=== PATIENT | female | born 1985 | race American Indian/Alaskan Native ===

== ENCOUNTER 2017-02-24 11:41 | Emergency (ER) | payer SELFPAY ==
[2017-02-24 11:55] VITALS: BP 112/71; PULSE 76; RESP 20; TEMP 97.8; O2SAT 100
--- NOTE | 2017-02-24 13:20 | C.PDOC ---
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 Patient is now complaining of pain to the left hand and the lower back. States she was seen in [facility] [place] and "they did nothing" for her. Denies swelling, head injury, LOC, neck paain, chest pain, SOB, abdominal pain, nausea/vomiting. Time Seen by Provider: 02/24/17 11:51 Chief Complaint (Nursing): Back Pain History Per: Patient History/Exam Limitations: no limitations Onset/Duration Of Symptoms: Hrs Current Symptoms Are (Timing): Still Present Quality Of Discomfort: Sharp Associated Symptoms: denies: Incontinence, New Weakness, New Numbness Exacerbating Factor(s): Turning, Movement Past Medical History Reviewed: Historical Data, Nursing Documentation, Vital Signs Vital Signs: Last Vital Signs Temp 97.8 F 02/24/17 11:50 Pulse 76 02/24/17 11:50 Resp 20 02/24/17 11:50 BP 112/71 02/24/17 11:50 Pulse Ox 100 02/24/17 16:54 - Medical History PMH: Bronchitis - [facility] EXC LES TEND SHEATH HAND (11/17/14) Family History: States: No Known Family Hx - Social History Hx Tobacco Use: Yes Hx Alcohol Use: No Hx Substance Use: No - Immunization History Hx Tetanus Toxoid Vaccination: Yes Hx Influenza Vaccination: Yes Hx Pneumococcal Vaccination: Yes Review Of Systems Except As Marked, All Systems Reviewed And Found Negative. Constitutional: Negative for: Fever Respiratory: Negative for: Shortness of Breath Gastrointestinal: Negative for: Nausea, Vomiting Musculoskeletal: Positive for: Back Pain, Hand Pain Neurological: Negative for: Weakness, Numbness Physical Exam - Physical Exam Appears: Non-toxic, No Acute Distress Skin: Warm, Dry, No Rash Head: Atraumatic, Normacephalic Eye(s): bilateral: Normal Inspection, PERRL, EOMI Nose: Normal Oral Mucosa: Moist Lips: Normal Appearing Neck: Normal ROM, Supple Cardiovascular: Rhythm Regular, No Friction Rub, No Murmur Respiratory: Normal Breath Sounds, No Accessory Muscle Use Gastrointestinal/Abdominal: Soft, No Tenderness Back: No CVA Tenderness, No Vertebral Tenderness, Paraspinal Tenderness (left lumbar spine) Extremity: Normal ROM, Tenderness (mild tenderness to the 5th metacarpal bone), Capillary Refill (< 2 sec), No Swelling Neurological/Psych: Oriented x3, Normal Speech, Normal Motor, Normal Sensation Gait: Steady ED Course And Treatment O2 Sat by Pulse Oximetry: 100 (on RA) Pulse Ox Interpretation: Normal - Other Rad XR Hand X-Ray: Interpreted by Me (No fracture) Interpretation: Accession No. : [id number]. Patient Name / ID : LAURA Santillan / [id number]. Exam Date : 02/24/2017 12:29:24 ( Approved ). Study Comment : Sex / Age : F / 31Y. Creator : Tristin Wray MD. Dictator : Tristin Wray MD. Gas Line Installer : Client Insights Consultant : Tristin Wray MD. Approver2 : Report Date : 02/24/2017 14:35:37. My Comment : . PROCEDURE: Left Hand Radiographs. HISTORY: hand injury. COMPARISON: None. FINDINGS: BONES: Normal. No fracture. JOINTS: Normal. No osteoarthritic changes. SOFT TISSUES: Normal. OTHER FINDINGS: None. IMPRESSION: No evidence of acute fracture or dislocation. XR Spine X-Ray: Interpreted by Me ((+)STRAIGHTENING), Viewed By Me, Read By Radiologist Interpretation: Accession No. : [id number]. Patient Name / ID : LAURA Santillan / [id number]. Exam Date : 02/24/2017 12:29:37 ( Approved ). Study Comment : Sex / Age : F / 31Y. Creator : Tristin Wray MD. Dictator : Tristin Wray MD. Gas Line Installer : Client Insights Consultant : Tristin Wray MD. Approver2 : Report Date : 02/24/2017 14:36:11. My Comment : . PROCEDURE: Radiographs of the Lumbar Spine. HISTORY: slip and fall onto back. COMPARISON: No prior. FINDINGS: BONES: Normal alignment. No listhesis. No fracture. DISC SPACES: Unremarkable. OTHER FINDINGS: None. IMPRESSION: No evidence of acute fracture or subluxation. Medical Decision Making Medical Decision Making: Plan: * XR: Spine, Hand * Motrin * Reassess and Disposition On reassessment, patient is resting comfortably, with improvement of back pain. Patient remains afebrile, with no bony tenderness, extremity numbness or weakness, or abdominal pain. XRs are negative. Patient is ambulatory in the emergency department with no signs of discomfort. Patient was advised to follow up with physician/clinic in 1-2 days. Disposition - Disposition Referrals: Christy Cowart MD [Staff Provider] - Disposition: HOME/ ROUTINE Disposition Time: 13:17 Condition: GOOD Additional Instructions: Follow up with the Orthopedist within 1-2 days. Return if worsened. Prescriptions: Cyclobenzaprine [Cyclobenzaprine HCl] 10 mg PO BID #14 tab Ibuprofen [Motrin] 600 mg PO TID #21 tab Lidocaine 5% [Lidoderm] 1 each TP DAILY #8 patch Instructions: Acute Low Back Pain (DC) Forms: [facility] (Vietnamese), Work Excuse - Clinical Impression Clinical Impression: Hand contusion, Contusion of back
--- NOTE | 2017-02-24 14:37 | RAD ---
PROCEDURE: Left Hand Radiographs. HISTORY: hand injury COMPARISON: None. FINDINGS: BONES: Normal. No fracture. JOINTS: Normal. No osteoarthritic changes. SOFT TISSUES: Normal. OTHER FINDINGS: None. IMPRESSION: No evidence of acute fracture or dislocation.
--- NOTE | 2017-02-24 14:37 | RAD ---
PROCEDURE: Radiographs of the Lumbar Spine. HISTORY: slip and fall onto back COMPARISON: No prior. FINDINGS: BONES: Normal alignment. No listhesis. No fracture. DISC SPACES: Unremarkable. OTHER FINDINGS: None. IMPRESSION: No evidence of acute fracture or subluxation.
== END 2017-02-24 13:42 | disposition home or self-care (01) ==
LOC: C.ER 11:41
DX: S60.222D Contusion of left hand, subsequent encounter (principal); S30.0XXD Contusion of lower back and pelvis, subsequent encounter; W00.0XXD Fall on same level due to ice and snow, subsequent encounter